=== PATIENT | male | born 1965 | race Caucasian/White ===

== ENCOUNTER → 2023-09-24 15:23 | Outpatient (REF) | payer OTHER, SELFPAY | LOC: DHVS 15:23 | PROVIDERS: ATTENDING PHYSICIAN Surgery Vascular Surgery; FAMILY PHYSICIAN Family Medicine | DX: I86.8 Varicose veins of other specified sites (principal) | CPT/HCPCS: 93970 ==

== ENCOUNTER 2024-08-31 14:53 | Inpatient (IN) | payer OTHER, SELFPAY ==
[2024-08-31] VITALS (55 sets, daily range): BP systolic 128–174; BP diastolic 73–107; BMI 27.7
[2024-08-31 13:03] LABS: Glucose - Point of Care 109 mg/dl (70-99)
--- NOTE | 2024-08-31 13:09 | ED.CVA ---
History of Present Illness
General
Chief Complaint: CVA/TIA Symptoms
Source: patient and ambulance crew
Exam Limitations: none
Time Seen by Provider: 08/31/24 13:09
Nursing documentation reviewed up to this point in time: agreed with
Onset of Stroke Symptoms
Onset of symptoms known: Yes
Date of onset of symptoms: 08/31/24
History of Present Illness
History of Present Illness:
Patient is a 59-year-old male who presents to the ER for evaluation. As per MS about 1 hour prior to arrival patient was sitting at his computer and had right arm weakness and noticing slurred speech that resolved in a couple of minutes and then he
had recurrence of episodes. When EMS apparently reported to the scene patient had right facial drooping however symptoms resolved prior to arrival. Upon my presentation patient was awake and alert speech was clear however as he was speaking to me
patient's speech started to slur again Very mild right-sided facial droop mild right arm weakness. He had no headache.
Patient reports is on a statin but no other medical history. He does drink several days a week, former smoker
Phy Exam
General Physical Exam
General Presentation: no apparent distress
General age: appears stated age
General Skin: warm and dry
General Habitus: normal
General Mental: alert
General Hydration: appears well hydrated
Cardiovascular Exam
Cardiovascular Exam: regular rate/rhythm, no murmur and normal peripheral pulses
Pulmonary Exam
Pulmonary Exam: lungs clear and no respiratory distress
Neurological Exam
Neurological Exam: alert, oriented x3 and no sensory deficits
NIH Stroke Score
Level of Consciousness: 0 - Alert
LOC questions: 0-Answers both correctly
LOC Commands: 0-Performs both correctly
Best Gaze: 0-Normal
Visual Mckeon: 0=Normal, no visual loss
Facial palsy: 2=Partial paralysis
Motor - Right Arm: 0=No drift 10 seconds
Motor - Left Arm: 0=No drift 10 seconds
Motor - Right Le-No drift 5 seconds
Motor - Left Le-No drift 5 seconds
Limb Ataxia: 0-Absent
Sensation: 0-Normal
Best Language: 0-No aphasia
Dysarthria: 1-Mild slurring
Extinction and Inattention: 0-No abnormality
Total Score:: 3
Musculoskeletal Exam
Musculoskeletal Exam: full ROM
Skin Exam
Skin Exam: normal color and warm/dry
Psychiatric Exam
Psychiatric Exam: normal mood/affect
Course
Orders/Labs/Results
Orders:
Orders
08/31/24 13:13
Electrocardiogram (*1) Urgent
Reason for Study: Other
Other Reason for Exam: Possible Stroke
Bedside Glucose- Treatment ONCE
Cardiac Monitoring- Treatment ONCE
EKG- Treatment ONCE
IV Insert/Care/Rem.- Treatment PRN
Vital Signs As Directed
Frequency: Other
Weight As Directed
Frequency: Once
Comment: ZERO STRETCHER SCALE FOR ACCURATE WEIGHT
O2 Therapy [RESP] Urgent
Titrate/Wean O2 to maintain O2 sat greater than (%): 93
Special Instructions: MAINTAIN CONTINUOUS O2 SATS > OR = 93%
08/31/24 13:15
CT HEAD STROKE ALERT W/o Cont Stat
Comment:
Reason For Exam: CVA sx
Alcohol Urgent
Complete Blood Count/With Diff Urgent
Comprehensive Metabolic Panel Urgent
PTT Urgent
Prothrombin Time Urgent
Troponin I Urgent
08/31/24 13:17
CT BRAIN PERF STROKE ALERT Urgent
Reason For Exam: slurred speech
08/31/24 13:18
CT HEAD/NECK ANG STROKE ALERT Urgent
Reason For Exam: slurred speech
08/31/24 13:28
Add On- LAB Urgent
Tests Added?: alcohol
08/31/24 13:54
Tenecteplase [Tnkase] 22 mg Syringe [Syringe Non-Pump] 0 ml IV NOW
Provider explained risk/benefits to patient &/or caregiver?: Yes
Blood pressure: 154/96
08/31/24 14:35
Admit/Transfer Patient As Directed
Co-Sign Provider:
Level of Care: Inpatient admission
Assign to:: ICU
Physician / Group: Marah Brown
Diagnosis: Acute Ischemic Stroke
Reason for Hospitalization: Acute Ischemic Stroke
Expected length of stay greater than two midnights?: Yes
ELOS- Estimated Length of Stay in days: 3
I certify the patient meets the requirements for IP care: Yes
PRN Pain Medication Management As Directed
May give lesser potent ordered pain med per pt: Yes
preference::
Protocol:: Medication orders for pain may be administered in a
manner that supports deferring to patient preference
when the pt is:
- Requesting an ordered lesser potent pain medication.
Least to most potent pain medications are defined
as: acetaminophen < NSAID < tramadol < opioids
(morphine, oxycodone, hydromorphone).
- Requesting a lesser dose of the same medication IF
ORDERED.
- Requesting a less intrusive route of administration
if both routes are prescribed by the provider (PO <
IV).
08/31/24 14:36
Code Status As Directed
Resuscitation Status: Full Code
08/31/24 14:41
Echo 2D MMode Color/Doppler Routine
Reason for Study: CVA/TIA
Comment: received TNK @ 1400
Abnormal Lab Results
08/31/24 08/31/24
13:01 13:15
WBC 4.4 L 10^3/uL
(4.8-10.8)
Plt Count 112 L 10^3/uL
(130-400)
MPV 11.7 H fL
(7.4-10.4)
Immature Gran % 0.9 H %
(0-0.5)
Monocytes % 9.5 H %
(1.7-9.3)
Chloride 111 H mmol/L
(98-107)
Carbon Dioxide 20 L mmol/L
(22-30)
Glucose 108 H mg/dl
(70-99)
ALT 60 H U/L
(0-50)
POC Glucose 109 H mg/dl
(70-99)
08/31/24 13:15
08/31/24 13:15
Vital Signs
Initial and Last Documented VS:
Initial Vital Signs
Pulse Resp
97 15
08/31/24 12:59 08/31/24 12:59
Last Documented Vital Signs
Temp Pulse Resp BP Pulse Ox
98.7 F 82 16 162/91 96
08/31/24 13:00 08/31/24 14:45 08/31/24 14:45 08/31/24 14:45 08/31/24 13:21
[employer]ist consulted with Physician
[employer]ist consulted with physician?: Yes
Name of Physician Consulted: Concepción
MDM/Problems Addressed
Differential Diagnosis Includes:
Not limited to TIA, CVA
MDM/Problems Addressed:
As documented patient is a 59-year-old male who presented with 2 episodes of slurred speech facial droop right arm weakness that occurred prior to arrival were resolved upon arrival to the ER. However during my exam patient started with garbled
speech again stroke alert was called. I spoke with . CT head CT perfusion CT head and neck angio ordered.
1350: Patient came back from imaging with clear speech patient was eval by neurology at bedside however while neurology was still in the room evaluating patient he started back with slurred speech he continues with slurred speech at this time. This
is patient's fourth episode of slurred speech with facial droop. as per neuro TNK to be ordered .
Patient with clear speech after TNK admitted to hospital service vital signs stable. Patient is a hospital service .
*Radiology
Radiology exam reviewed: radiology read reviewed
*Pulse Oximetry
SaO2: 96
Oxygen Mode of Delivery: Room air
Patient hypoxic: no
*EKG
Interpretation: normal
Heart Rate: 92
Rate: normal
Rhythm: sinus
Ischemia: no ischemia
*Critical Care Note
Total Time (30-74mins, 75-104mins- exclusive of procedures): Not Applicable
comment:
Critical care statement: A total of 40 minutes of critical care time was provided for this patient. This includes management of unstable vital signs, evaluation of the patient at bedside, reviewing the patient's pertinent medical records, discussion
with consultants, review of old EKGs and review of pertinent medical records. This time with separate from time utilized to perform the aforementioned documented procedures
ED Attending Note
-
Portions of this chart may have been created with voice recognition software.� Occasional wrong word or��sound alike� substitutions may have occurred due to the inherent limitations of voice recognition software.
Discharge Plan
Departure
Patient Disposition: Admit
Date of Disposition: 08/31/24
Time of Disposition: 14:07
Admit to: ICU
Admit to doctor: hospitalist
Presentation/result/management discussed w/ accepting MD/DO: Hospitalist
Patient with high blood pressure during this ER visit?: Yes
Condition: Fair
Covid-19: Not Applicable
Discharge Problem:
Acute CVA (cerebrovascular accident)
Prescriptions:
No Action
atorvastatin 20 mg tablet
20 mg PO Daily
fenofibrate 160 mg tablet
160 mg PO Daily
cyanocobalamin (vitamin B-12) 1,000 mcg Tablet
1,000 mcg PO DAILY
cholecalciferol (vitamin D3) [Vitamin D3] 25 mcg (1,000 unit) Tablet
25 mcg PO DAILY
Nitric Oxide Tablet
1 tab PO DAILY
Discharge Date and Time
Print Language: NIUEAN
[2024-08-31 13:29] LABS: Hematocrit 44.2 % (39.0-52.0); Hemoglobin 15.4 g/dL (13.0-18.0); Mean Corp Hgb Conc. 34.8 g/dL (33.0-37.0); Mean Corpuscular Volume 86.3 fL (80.0-94.0); Nucleated Red Blood Cells % 0 % (-); Platelet Count 112 10^3/uL (130-400); Red Cell Dist. Width 12.7 % (11.5-14.5)
[2024-08-31 13:35] LABS: ALT (SGPT) 60 U/L (0-50); AST (SGOT) 38 U/L (17-59); Albumin 4.3 g/dl (3.5-5.0); Alkaline Phosphatase 68 U/L (38-126); Blood Urea Nitrogen 10 mg/dl (9-20); Calcium 9.7 mg/dl (8.4-10.2); Carbon Dioxide 20 mmol/L (22-30); Chloride 111 mmol/L (98-107); Estimated Creatinine Clearance 100 ml/min; Glucose 108 mg/dl (70-99); Potassium 3.8 mmol/L (3.5-5.1); Sodium 140 mmol/L (135-145); Total Protein 7.5 g/dl (6.3-8.2); eGFR > 60.00
[2024-08-31 13:36] LABS: INR 0.94; PT 13.1 Sec (11.4-14.6)
[2024-08-31 13:37] LABS: APTT 25.9 Sec (23.4-35.0)
[2024-08-31 13:47] LABS: Troponin I < 0.012 ng/ml
[2024-08-31] MEDS: TNKASE 4.4 MG IV (14:00)
--- NOTE | 2024-08-31 14:08 | HPS.HSE ---
Addendum entered and electronically signed by Marah Brown MD 08/31/24 16:40:
Alcohol Use
--patient reports drinking 2 light beers/day
-will order MSAS scoring, start withdrawal treatment protocol if e/o withdrawal
Original Note:
Family Physician
-
Family Physician: Darius Christy MD
Chief Complaint
-
slurred speech, facial droop and right arm weakness
History of Present Illness
Mr. Hermann Cohen is a 59 yo man with hx HLD on statin, former smoker, presents to the ER with recurrent transient episodes of right arm weakness and slurred speech.
Symptoms started today around noon. He had trouble speaking and right arm weakness. Resolved after a few minutes then recurred. When EMS arrived they noticed right facial droop that resolved upon arrival to the ER. Patient had 2 following
episodes in the ER, discussed with Neurology and TNK given. At beginning of my eval patient had slurred speech that resolved midway through my evaluation. He has right sided weakness associatd with events.
No recent fevers/chills. No chest pain or shortness of breath. No nausea/vomiting. No abdominal pain. No LE swelling.
Medical History
Past Medical History
Past Medical History: Reports Hypercholesterolemia
Past Surgical History: Reports Other
Social History
Tobacco: Other (occasional)
Alcohol: Occasional
Family History
Family History: Not pertinent
Allergies / Home Medications
Allergies reflects when Allergies were last updated in [employer].
Home Medications with original date entered in [employer]
Allergy/Medication List:
Allergies
Allergy/AdvReac Type Severity Reaction Status Date / Time
No Known Allergies Allergy Unverified 11/11/20 09:55
Review of Systems
-
History Source: Patient
A 12 point ROS was completed and negative except as noted: Yes
Physical Exam
Vital Signs
Vital Signs
Temp Pulse Resp BP Pulse Ox
98.7 F 91 16 154/96 96
08/31/24 13:00 08/31/24 13:45 08/31/24 13:45 08/31/24 13:00 08/31/24 13:21
Physical Exam
General: No Apparent Distress
HEENT: PERRLA
Respiratory: Clear; No Wheezes
Cardiac: S1/S2 and Regular Rhythm
GI: Soft and Non Tender
Musculoskeletal: No Edema
Skin: Warm and Dry; No Rash
Neuro: Other (ROSY, EOMI, initially had slurred speech that resolved after several minutes, 5/5 upper and lower extremity strength, no pronator drift)
Psych: Calm
Laboratory Results
-
08/31/24 13:15
08/31/24 13:15
Laboratory Results
PT 13.1 Sec (11.4-14.6) 08/31/24 13:15
INR 0.94 08/31/24 13:15
APTT 25.9 Sec (23.4-35.0) 08/31/24 13:15
Total Bilirubin 0.8 mg/dl (0.2-1.3) 08/31/24 13:15
AST 38 U/L (17-59) 08/31/24 13:15
ALT 60 U/L (0-50) H 08/31/24 13:15
Alkaline Phosphatase 68 U/L (38-126) 08/31/24 13:15
Troponin I < 0.012 ng/ml 08/31/24 13:15
Data Reviewed
-
Diagnostic Radiology: Report Reviewed by me
Lab Data: Labs Reviewed by me
Impression/Plan
-
Mr. Hermann Cohen is a 59 yo man with hx HLD on statin, former smoker, presents to the ER with recurrent transient episodes of right arm weakness and slurred speech. Patient had 2 episodes at home, asymptomatic on arrival followed by 2 additional
episodes. At this point TNK ordered.
Triage VS: T 98.7, P 97, RR 15, BP 154/96, SpO2 96%
LABS: WBC 4.4, Hg 15.4, PLT 112, Na 140, K+ 3.8, Cl 111, CO2 20, Cr 0.8, Glucose 108, T. Bili 0.8, AST 38, ALT 60, Trop < 0.[address]
IMPRESSION:
There are mild changes of cortical atrophy
CT BRAIN PERFUSION
CT HEAD/NECK
IMPRESSION:
Bilateral internal carotid atherosclerotic plaque without hemodynamically significant stenosis.
Mildly dominant left vertebral artery, diminutive distal right vertebral artery. No findings to suggest vertebral artery or internal carotid artery dissection bilaterally.
No findings to suggest significant proximal intracranial arterial stenosis bilaterally..
MAR TNK @ 1400
Acute Ischemic Stroke s/p TNK
-admit to ICU
-q1 hour neuro checks
-MRI Brain tomorrow, 24 hours post TNK
-TTE
-monitor on telemetry, will likely need discharge with longer term cardiac monitoring
-PT/OT/ST
-Burlapper consult
-Neurology consult
-start anti-pLT post 24 hour imaging
-F/U lipid panel, A1c
-increase atorvastatin to 40mg qhs
DVT PPx SCD for 24 hours post TNK
FULL CODE
Total Critical Care Time 51 minutes. I was immediately available to the patient and staff. I personally examined, reviewed labs, diagnostic images/reports, interpretations, treatment plans, discussed patient care with other providers and family
or caregivers (if patient is unable to make decisions), entered orders as appropriate and documented the medical record.
--- NOTE | 2024-08-31 14:08 | CON.INTV ---
Consultation
Consultation Request
Date/Time Consultation Requested: 08/31/2024-2:30 PM
Date/Time Consultation Performed: 08/31/2024-3 PM
Requesting Provider: hospitalist
Performing Provider: Dr. Orourke
Reason for Consultation: CVA/critical care management
Medical History
-
Chief Complaint: CVA
History of Present Illness:
59-year-old former smoking male who developed sudden onset right arm weakness and slurring speech felt to have CVA and received TNK-ux ui designer consulted for post TNKase/CVA/critical care management 08/31/2024.
Past Medical History
Past Medical History: None ( Hyperlipidemia. Low testosterone. Corneal transplant. . Popliteal vein aneurysm.Former smoker.)
Social History
Tobacco: Former Smoker
Alcohol: Occasional
Living: With Family
Occupational Exposures: No known asbestos exposure
Environmental Exposures: no known tuberculosis exposure
Family History
Family History: Reviewed & Not Pertinent ( Father-cancer. Mother-diabetes, atrial fibrillation and fibromyalgia)
Allergies / Home Medications
Allergies
Allergy/AdvReac Type Severity Reaction Status Date / Time
No Known Allergies Allergy Unverified 11/11/20 09:55
Review of Systems
-
Unable to Obtain full review of systems at this time due to: Other ( Per HPI)
Vitals / Labs / Diagnostic Testing
Vital Signs
Temp Pulse Resp BP Pulse Ox
98.7 F 91 16 154/96 96
08/31/24 13:00 08/31/24 13:45 08/31/24 13:45 08/31/24 13:00 08/31/24 13:21
Lab Data
08/31/24 13:15
08/31/24 13:15
Laboratory Results
08/31/24
13:15
PT 13.1
INR 0.94
APTT 25.9
Diagnostic Testing:
Physical Exam
-
Exam:
well-nourished and well-developed in no apparent distress
HEENT-atraumatic, normocephalic
Neck-supple, no JVD, no bruit
Heart-regular rate and rhythm-no murmurs, rubs or gallops
Chest-clear to auscultation, no wheezes, crackles
Back-no tenderness
Abdomen-soft, nontender, nondistended, no hepatosplenomegaly
Extremities-no cyanosis, clubbing, edema and good peripheral pulses
Integument-intact, no rashes, lesions or ecchymosis
Neurology-alert and oriented, nonfocal motor and sensory exam
Assessment
-
59-year-old former smoking male who developed sudden onset right arm weakness and slurring speech felt to have CVA and received TNK-ux ui designer consulted for post TNKase/CVA/critical care management 08/31/2024.
Evolving CVA status post TNK
Mild leukopenia
Mild hyperglycemia
Mild thrombocytopenia
Mild transaminitis
Conditions present prior to admission:
Hyperlipidemia.
Low testosterone.
Corneal transplant.
Popliteal vein aneurysm.
Former smoker-a couple cigarettes here there, less than 11-[id number]-puyk smoking history
Daily alcohol consumption-2- 3 beers
Plan
Admit patient to medical intensive care unit
Supplemental oxygen to maintain saturation greater than 92%
Aspiration precautions
Neurology evaluation
Monitor blood pressure closely-goal SBP < 180, DBP < 105
Neuro checks per protocol
Check CT head
MRI head/MRA head and neck in next 24 hours
Status post tenecteplase infusion
Hold antiplatelet therapy �24 hours
Check lipid panel-goal LDL less than 70
Check echocardiogram
Check A1c
Carotid circulation evaluation
Atorvostatin 80 mg daily if tolerated
Monitor blood sugar-insulin as needed-goal blood sugar 140-180
Follow MSAS
Alcohol withdrawal treatment protocol if signs of withdrawal
Smoking cessation counseling
Patient does not qualify for yearly low-dose lung cancer screening CT based on total pack years smoked
DVT prophylaxis-sequential for 24 hours and then Lovenox
Speech therapy/occupational therapy/physical therapy evaluation
Stroke education packet
No driving-patient needs outpatient visual field testing/clearance by ophthalmology for driving clearance
Critical care statement: A total of 55 minutes of critical care time was provided for this patient today. This includes management of unstable vital signs, evaluation of the patient at bedside, reviewing the patient's pertinent medical records
including radiographs, microbiology, laboratory evaluations, and discussion with primary team, consultants, pharmacy, nutrition, physical therapy, case management, charge nurse, critical care nursing, and respiratory therapy.
Diagnostic data:
CT head 08/31/2024-mild changes of cortical atrophy
CT head and neck angiogram 08/31/2024- bilateral internal carotid atherosclerotic plaques without hemodynamically significant stenosis with cross-sectional area stenosis less than 50% bilaterally, no findings to suggest significant proximal
Data Reviewed
-
EKG: Report reviewed by me
Radiology: Image personally visualized and interpreted and Report reviewed by me
CT Scan: Report reviewed by me
Labs: Labs reviewed by me
Old Records: Reviewed
Critical Care Time (in minutes): 55
--- NOTE | 2024-08-31 15:15 | PTCARENOTE ---
Pt rec'd into ICU 3364 from ED, handoff NIHSS completed in tandem with ED RNs and solar panel installation supervisor, pt scored 0. All previous deficits have resolved at this time. Pt oriented to room and plan of care, admission and assessment completed. Pt is AOx3, calm
and cooperative. Arrived to unit with sunburn noted to face and trunk, no other complaints at this time. Voided 350 mls clear yellow urine via urinal. Orders rec'd and carried out. See flow sheet for details -neuro checks and NIHSS checks completed
as per orders. Call moraes in hand, dinner ordered, safe environment maintained. Pt was screened for MRI by phone.
[2024-08-31 16:42] LABS: Magnesium 1.8 mg/dl (1.6-2.3)
--- NOTE | 2024-08-31 17:31 | CON.NEURO ---
Neuro Assessment/Plan
Assessment
head CT imgs and rept rev'd, no bleed
CTA head neck imgs and rept rev'd, mild atherosclerosis of bilateral carotids, no significant stenosis, no LVO
stroke/crescendo TIA, s/p TNK
Plan
24 hrs of ICU monitoring then MRI
Consultation
Order
Date of Consultation: 08/31/24
Requesting Provider:
Reason for Consult:
Subjective/Objective
Subjective Data
Date of Service: August 31, 2024
Patient is a 59-year-old male who presents to the ER for evaluation. As per MS about 1 hour prior to arrival patient was sitting at his computer and had right arm weakness and noticing slurred speech that resolved in a couple of minutes and then he
had recurrence of episodes. When EMS apparently reported to the scene patient had right facial drooping however symptoms resolved prior to arrival. Upon my presentation patient was awake and alert speech was clear however as he was speaking to me
patient's speech started to slur again Very mild right-sided facial droop mild right arm weakness. He had no headache.
Patient reports is on a statin but no other medical history. He does drink several days a week, former smoker
I examined and spoke with patient and family immediately after CT scan at which time his 3rd TIA resolved and we discussed the role of TNK, and then immediately afterwards his symptoms recurred and we decided to give TNK. it resolved and then he had
a 5th episode
Objective Data
Vital Signs
Temp Pulse Resp BP Pulse Ox
36.7 C 79 21 158/86 97
08/31/24 15:38 08/31/24 17:02 08/31/24 17:02 08/31/24 17:02 08/31/24 17:12
Lab Results
08/31/24 13:15
08/31/24 13:15
PT 13.1 Sec (11.4-14.6) 08/31/24 13:15
INR 0.94 08/31/24 13:15
APTT 25.9 Sec (23.4-35.0) 08/31/24 13:15
Sodium 140 mmol/L (135-145) 08/31/24 13:15
Potassium 3.8 mmol/L (3.5-5.1) 08/31/24 13:15
BUN 10 mg/dl (9-20) 08/31/24 13:15
Glucose 108 mg/dl (70-99) H 08/31/24 13:15
Calcium 9.7 mg/dl (8.4-10.2) 08/31/24 13:15
Phosphorus 3.8 mg/dl (2.5-4.5) 08/31/24 13:15
Patient Allergies
No Known Allergies Allergy (Unverified 11/11/20 09:55)
CVA Assessment
Onset of Stroke Symptoms
Onset of symptoms known: Yes
Date of onset of symptoms: 08/31/24
Time of onset of symptoms: 12:00
NIH Stroke Score
Level of Consciousness: 0 - Alert
LOC Questions: 0-Answers both correctly
LOC Commands: 0-Performs both correctly
Best Horizontal Gaze: 0-Normal
Visual Mckeon: 0=Normal, no visual loss
Facial Palsy: 1=Minor paralysis
Motor - Right Arm: 0=No drift 10 seconds
Motor - Left Arm: 0=No drift 10 seconds
Motor - Right Le-No drift 5 seconds
Motor - Left Le-No drift 5 seconds
Limb Ataxia: 0-Absent
Sensation: 0-Normal
Best Language: 0-No aphasia
Dysarthria: 2-Severe slurring
Extinction and Inattention: 0-No abnormality
NIH Total Score:: 3
Physical Exam
-
dysarthric, speech difficult to comprehend
right facial droop
loss of dominance, right pronator drift
Medications
-
Active Medications
Generic Name Dose Route Start Last Admin
Trade Name Freq PRN Reason Stop Dose Admin
Acetaminophen 650 mg 08/31/24 15:08
Acetaminophen 325 Mg Tablet PO 09/28/24 15:07
Q4HPRN PRN
ROUSE, mild pain, or temp >100.4F
Atorvastatin Calcium 40 mg 08/31/24 18:00
Atorvastatin (Lipitor) 20 Mg Tablet PO 09/28/24 17:59
QPM SIDDHARTHA
Fenofibrate 145 mg 09/01/24 08:00
Fenofibrate 145 Mg Tablet PO 09/29/24 07:59
DAILY SIDDHARTHA
Labetalol HCl 10 mg 08/31/24 15:08
Labetalol Hcl 5 Mg/1 Ml (20 Mg/4 Ml) Injection IV 09/28/24 15:07
Q6HPRN PRN
BP > 180/105 mmHg
Home Medications
�Medication �Instructions �Recorded
Nitric Oxide Tablet 1 tab PO DAILY 08/31/24
atorvastatin 20 mg tablet 20 mg PO Daily High Cholesterol 08/31/24
cholecalciferol (vitamin D3) 25 25 mcg PO DAILY 08/31/24
mcg (1,000 unit) tablet (Vitamin
D3)
cyanocobalamin (vitamin B-12) 1,000 mcg PO DAILY 08/31/24
1,000 mcg tablet
fenofibrate 160 mg tablet 160 mg PO Daily High Cholesterol 08/31/24
[2024-08-31] MEDS: LIPITOR 40 MG PO (17:57)
--- NOTE | 2024-08-31 18:46 | PTCARENOTE ---
Pt remains AOx3, pleasant and cooperative, Neuro checks WNL. Pt ate 100% dinner, now placed on bedpan for BM. Report given to night RN.
--- NOTE | 2024-08-31 20:46 | PTCARENOTE ---
Received pt from previous RN. Pt is AAOx3. NIH done at change of shift hand off (see worklist), neuro checks per protocol. MSAS per protocol. NSR on the monitor. Pt on RA O2 sat 95%, lungs clear. Pt uses the urinal in bed. Pt with no c/o pain. SCDs
in place. Mouth care provided. Safe environment maintained. Call moraes in reach.
[2024-09-01] VITALS (27 sets, daily range): BP systolic 128–158; BP diastolic 80–97; PULSE 80; BMI 27.2
--- NOTE | 2024-09-01 00:23 | PTCARENOTE ---
Systems reviewed, no new changes in assessment. Neuro check WNL (see worklist). Call moraes in reach. Safe environment maintained.
--- NOTE | 2024-09-01 04:24 | PTCARENOTE ---
Systems reviewed, no new changes in assessment. Neuro checks WNL. Call moraes in reach. Safe environment maintained.
--- NOTE | 2024-09-01 07:47 | W.PN.INTV ---
Today's Communication / Plan
Recommendations
wean oxygen
Neurochecks continue
Brain MRI
If patient remains neurologically stable 24 hours post TNK then could be transferred out of ICU-manager of tires sales will sign off-call pulmonary if respiratory issues arise
Assessment
-
59-year-old former smoking male who developed sudden onset right arm weakness and slurring speech felt to have CVA and received TNK-manager of tires sales consulted for post TNKase/CVA/critical care management 08/31/2024.
Evolving CVA status post TNK
Mild leukopenia
Mild hyperglycemia
Mild thrombocytopenia
Mild transaminitis
Conditions present prior to admission:
Hyperlipidemia.
Low testosterone.
Corneal transplant.
Popliteal vein aneurysm.
Former smoker-a couple cigarettes here there, less than 48-lgdl-pfuj smoking history
Daily alcohol consumption-2- 3 beers
Plan
Neurologic symptoms have improved
Wean supplemental oxygen
Aspiration precautions
Incentive spirometry
Neurology evaluationOngoing-correspondence reviewed
Monitor blood pressure closely-goal SBP < 180, DBP < 105
Neuro checks per protocol
Status post tenecteplase infusion-2 PM 08/31/2024
Held antiplatelet therapy �24 hours
Check lipid panel-goal LDL less than 70
Echocardiogram 08/31/2024-EF 60%, no significant valvular disease, cannot rule out PFO, no obvious cardioembolic source of stroke
A1c-5.6%
Atorvostatin 80 mg daily if tolerated
Monitor blood sugar-insulin as needed-goal blood sugar 140-180
Follow MSAS
Alcohol withdrawal treatment protocol if signs of withdrawal
Smoking cessation counseling
Patient does not qualify for yearly low-dose lung cancer screening CT based on total pack years smoked
DVT prophylaxis-sequential for first 24 hours and then Lovenox
Speech therapy/occupational therapy/physical therapy evaluation
Stroke education packet
If continues to remain neurologically stable patient could be transferred out of ICU-manager of tires sales will sign off-call pulmonary if respiratory issues arise
Critical care statement: A total of 40 minutes of critical care time was provided for this patient today. This includes management of unstable vital signs, evaluation of the patient at bedside, reviewing the patient's pertinent medical records
including radiographs, microbiology, laboratory evaluations, and discussion with primary team, consultants, pharmacy, nutrition, physical therapy, case management, charge nurse, critical care nursing, and respiratory therapy.
Diagnostic data:
CT head 08/31/2024-mild changes of cortical atrophy
CT head and neck angiogram 08/31/2024- bilateral internal carotid atherosclerotic plaques without hemodynamically significant stenosis with cross-sectional area stenosis less than 50% bilaterally, no findings to suggest significant proximal
Subjective Dataa
Subjective Data
Date of Service:
Date of Service: September 01, 2024
Chief Complaint: Organ Fixer Follow Up and Pulmonary Follow Up
Subjective:
feels well, neurologic symptoms have resolved, no complaints of dysarthria, weakness, numbness, and denies any shortness of breath, chest pain or abdominal pain
Review of Systems
General: Other ( Per HPI)
Objective Data
Data Reviewed
Vital Signs / I&O / Oxygen:
Vital Signs
Temp Pulse Resp BP Pulse Ox
97.9 F 64 17 144/88 95
09/01/24 07:42 09/01/24 07:02 09/01/24 07:02 09/01/24 07:02 09/01/24 07:40
Intake and Output
08/31/24 09/01/24 09/02/24
06:59 06:59 06:59
Intake Total 200 / 200
Output Total 650 / 650
Balance -450 / -450
SaO2 95
Physical Exam
General: Respiratory Distress (n) and Comfortable
HEENT: Normocephalic, Anicteric and Moist Mucous Membranes
Cardiovascular: Regular Rhythm
Respiratory: Wheeze (n), Crackles (n), Rhonchi (n), Non-Labored Respirations, Accessory Resp Muscle Use (n) and Stridor (n)
GI: Soft, Non Distended and Non Tender
Neurology: Awake, Alert and No Motor Deficits
Skin: Warm, Good Color, Cyanosis (n) and Jaundice (n)
Labs/Micro/Reports
Laboratory Results
08/31/24
13:15
PT 13.1
INR 0.94
APTT 25.9
[2024-09-01] MEDS: TRICOR 145 MG PO (07:58)
--- NOTE | 2024-09-01 08:16 | PTCARENOTE ---
Pt rec'd from night RN in report 07:15. Handoff NIHSS 0. Pt is aox3, pleasant and cooperative. C/O gas pains, placed on bedpan; +flatus, no BM. VSS. Awaiting MRI, potential downgrade out of ICU later today. MSAS scores remain 0. Breakfast ordered
and delivered, labs obtained by supervisor photocomposition, call moraes in reach. Plan discussed with submarine element coordinator. Safe environment maintained.
[2024-09-01 08:36] LABS: Hematocrit 46.1 % (39.0-52.0); Hemoglobin 15.7 g/dL (13.0-18.0); Mean Corp Hgb Conc. 34.1 g/dL (33.0-37.0); Mean Corpuscular Volume 87.1 fL (80.0-94.0); Platelet Count 114 10^3/uL (130-400); Red Cell Dist. Width 13.1 % (11.5-14.5)
[2024-09-01 08:39] LABS: INR 1.00; PT 13.5 Sec (11.4-14.6)
[2024-09-01 08:40] LABS: APTT 26.5 Sec (23.4-35.0)
--- NOTE | 2024-09-01 08:46 | PTCARENOTE ---
MRI dept called to set up time for 11 am. Pt updated.
[2024-09-01 09:08] LABS: Glycohemoglobin (HgbA1c) 5.6 % (4.0-5.6)
[2024-09-01 09:21] LABS: Blood Urea Nitrogen 12 mg/dl (9-20); Calcium 9.6 mg/dl (8.4-10.2); Carbon Dioxide 25 mmol/L (22-30); Chloride 108 mmol/L (98-107); Estimated Creatinine Clearance 100 ml/min; Glucose 99 mg/dl (70-99); HDL Cholesterol 41 mg/dl; LDL Cholesterol, Calculated 158 mg/dl; Magnesium 2.1 mg/dl (1.6-2.3); Potassium 4.8 mmol/L (3.5-5.1); Sodium 141 mmol/L (135-145); Very Low Density Lipoprotein 42 mg/dl (0-30); eGFR > 60.00
--- NOTE | 2024-09-01 11:15 | PTOTSP ---
Speech therapy
Presentation: Patient's speech and language appeared to be WNL during conversation. Noted very, very slight left facial weakness/ droop which patient denied complaints or weakness. Patient denied any communicative deficits.
Swallowing function: Patient was observed with several bites of regular consistency solids and sips of thin liquid from his tray in which patient appeared to tolerate as he did not exhibit any overt clinical s/sx of aspiration or difficulty with
mastication. Patient denied any dysphagia complaints.
Per RN, patient tolerated medications whole with thin liquids.
Recommendations:
1) regular consistency solids and thin liquids
2) aspiration precautions
3) medications whole with thin liquids
Plan: WIRELESS INTERNET INSTALLER will continue to follow to ensure tolerance; pending hospitalization.
--- NOTE | 2024-09-01 11:58 | W.PN.HOSP.TC ---
Today's Communication/Plan
-
Await MRI results
Antiplatelet agents per neurology
If MRI without acute abnormality can consider transfer out of ICU
Monitor telemetry
Monitor blood pressure
Continue statin
Assessment / Plan
Assessment / Plan
General: No Apparent Distress
HEENT: PERRLA
Respiratory: Clear; No Wheezes
Cardiac: S1/S2 and Regular Rhythm
GI: Soft and Non Tender
Musculoskeletal: No Edema
Skin: Warm and Dry; No Rash
Neuro: Other (ROSY, EOMI, initially had slurred speech that resolved after several minutes, 5/5 upper and lower extremity strength, no pronator drift)
Psych: Calm
Mr. Hermann Cohen is a 59 yo man with hx HLD on statin, former smoker, presents to the ER with recurrent transient episodes of right arm weakness and slurred speech. Patient had 2 episodes at home, asymptomatic on arrival followed by 2 additional
episodes. At this point TNK ordered.
Triage VS: T 98.7, P 97, RR 15, BP 154/96, SpO2 96%
LABS: WBC 4.4, Hg 15.4, PLT 112, Na 140, K+ 3.8, Cl 111, CO2 20, Cr 0.8, Glucose 108, T. Bili 0.8, AST 38, ALT 60, Trop < 0.[address]
IMPRESSION:
There are mild changes of cortical atrophy
CT BRAIN PERFUSION
CT HEAD/NECK
IMPRESSION:
Bilateral internal carotid atherosclerotic plaque without hemodynamically significant stenosis.
Mildly dominant left vertebral artery, diminutive distal right vertebral artery. No findings to suggest vertebral artery or internal carotid artery dissection bilaterally.
No findings to suggest significant proximal intracranial arterial stenosis bilaterally..
MAR TNK @ 1400
Acute Ischemic Stroke s/p TNK
-q1 hour neuro checks
-MRI Brain results pending
-TTE with EF of 60%. No significant valvular disease. Intra-atrial septum is not well-visualized. Cannot rule out PFO. No obvious cardioembolic source of stroke. Continue to monitor on telemetry.
-monitor on telemetry,
-PT/OT/ST
-start anti-pLT post 24 hour imaging per neurology
- Cholesterol elevated.
-increase atorvastatin to 40mg qhs
- Neurology recs
Alcohol Use
--patient reports drinking 2 light beers/day
-will order MSAS scoring, start withdrawal treatment protocol if e/o withdrawal
Hyperlipidemia
Statin dose increase
Vitamin B12 deficiency
Continue p.o. supplementation
DVT PPx SCD for 24 hours post TNK
FULL CODE
Anticipated Discharge: > 48 hours
Subjective/Interval History
-
Date of Service: September 01, 2024
No overnight events
Passing flatulence
Denies any pain or lightheadedness
Objective Data
-
Labs:
Laboratory Results
09/01/24
08:04
WBC 4.3 L
Hgb 15.7
Hct 46.1
Plt Count 114 L
PT 13.5
INR 1.00
APTT 26.5
Sodium 141
Potassium 4.8 D
Chloride 108 H
Carbon Dioxide 25
BUN 12
Creatinine 0.8
Glucose 99
Calcium 9.6
Vital Signs:
Vital Signs
Temp Pulse Resp BP Pulse Ox
98.2 F 70 12 128/86 95
09/01/24 11:06 09/01/24 11:02 09/01/24 11:02 09/01/24 11:02 09/01/24 07:40
I&O
08/31/24 09/01/24 09/02/24
06:59 06:59 06:59
Intake Total 200 / 200 480 / 480
Output Total 650 / 650 300 / 300
Balance -450 / -450 180 / 180
Data Reviewed
-
Total Time Spent with Patient (in minutes): 55
--- NOTE | 2024-09-01 13:05 | PTCARENOTE ---
Pt taken for MRI, returned to room without incident, MDs updated. Pt eating lunch -Neuro checks remain WNL, see flowsheet.
--- NOTE | 2024-09-01 13:35 | PTCARENOTE ---
Pt assigned new room 414-1. Attending updated, ok to transfer pt out. Activity as tolerated ordered. Pt updated. Report attempted- RN unavailable to receive at this time, will call back.
--- NOTE | 2024-09-01 14:14 | PTCARENOTE ---
Report given to Baltazar SHAFFER, pt updated. Pt assisted into bathroom to attempt BM. Steady on feet with standby assistance.
[2024-09-01] MEDS: COZAAR 25 MG PO (14:17)
[2024-09-01] MEDS: LIPITOR 40 MG PO (17:12)
--- NOTE | 2024-09-01 19:54 | W.PN.NEURO.1 ---
Today's Communication / Plan
-
21 days of DAPT, Lipitor 40
outpatient embolic workup
Neuro Assessment/Plan
Assessment
head CT imgs and rept rev'd, no bleed
CTA head neck imgs and rept rev'd, mild atherosclerosis of bilateral carotids, no significant stenosis, no LVO
brain MRI imgs rev'd with patient showing stroke
stroke/crescendo TIA, s/p TNK. suspicion for embolic source of a partly occlusive thrombus which partially dissolved and stroked a smaller territory
start 21 days of DAPT
agree increase Lipitor 40
we discussed and he is interested in outpatient cardiology for embolic workup
Subjective/Objective
Subjective Data
Date of Service: September 01, 2024
symptoms resolved
ended up having a total of 5 events, the last one occurred right after TNK
Objective Data
Vital Signs
Temp Pulse Resp BP Pulse Ox
36.9 C 66 16 149/82 96
09/01/24 19:28 09/01/24 19:28 09/01/24 19:28 09/01/24 19:28 09/01/24 19:28
Lab Results
09/01/24 08:04
09/01/24 08:04
PT 13.5 Sec (11.4-14.6) 09/01/24 08:04
INR 1.00 09/01/24 08:04
APTT 26.5 Sec (23.4-35.0) 09/01/24 08:04
Sodium 141 mmol/L (135-145) 09/01/24 08:04
Potassium 4.8 mmol/L (3.5-5.1) D 09/01/24 08:04
BUN 12 mg/dl (9-20) 09/01/24 08:04
Glucose 99 mg/dl (70-99) 09/01/24 08:04
Calcium 9.6 mg/dl (8.4-10.2) 09/01/24 08:04
Phosphorus 3.8 mg/dl (2.5-4.5) 08/31/24 13:15
LDL Cholesterol, Calc 158 mg/dl 09/01/24 08:04
Patient Allergies
No Known Allergies Allergy (Unverified 11/11/20 09:55)
[2024-09-01] MEDS: PLAVIX 75 MG PO (20:04)
[2024-09-01] MEDS: ASPIR LOW (ENTERIC COATED) 81 MG PO (20:04)
[2024-09-02 03:49] VITALS: BP 127/80
[2024-09-02 07:00] VITALS: BP 137/83
[2024-09-02 09:37] LABS: Glucose 135 mg/dl (70-99)
[2024-09-02 09:38] LABS: Blood Urea Nitrogen 14 mg/dl (9-20); Calcium 9.4 mg/dl (8.4-10.2); Carbon Dioxide 29 mmol/L (22-30); Chloride 107 mmol/L (98-107); Estimated Creatinine Clearance 89 ml/min; Potassium 4.5 mmol/L (3.5-5.1); Sodium 139 mmol/L (135-145); eGFR > 60.00
[2024-09-02] MEDS: PLAVIX 75 MG PO (09:38)
[2024-09-02] MEDS: COZAAR 25 MG PO (09:39)
[2024-09-02] MEDS: TRICOR 145 MG PO (09:39)
[2024-09-02] MEDS: ASPIR LOW (ENTERIC COATED) 81 MG PO (09:39)
--- NOTE | 2024-09-02 10:34 | W.PN.HOSP.TC ---
Today's Communication/Plan
-
dc home
Assessment / Plan
Assessment / Plan
General: No Apparent Distress
HEENT: PERRLA
Respiratory: Clear; No Wheezes
Cardiac: S1/S2 and Regular Rhythm
GI: Soft and Non Tender
Musculoskeletal: No Edema
Skin: Warm and Dry; No Rash
Neuro: Awake alert and oriented. Cranial nerves II to XII intact
Psych: Calm
Mr. Hermann Cohen is a 59 yo man with hx HLD on statin, former smoker, presents to the ER with recurrent transient episodes of right arm weakness and slurred speech. Patient had 2 episodes at home, asymptomatic on arrival followed by 2 additional
episodes. At this point TNK ordered.
Acute Ischemic Stroke s/p TNK
-q1 hour neuro checks
-MRI Brain results positive for severe
-TTE with EF of 60%. No significant valvular disease. Intra-atrial septum is not well-visualized. Cannot rule out PFO. No obvious cardioembolic source of stroke. Continue to monitor on telemetry.
-monitor on telemetry,
-PT/OT/ST
- Plan for dual antiplatelet agent for 21 days then continue single agent
- Cholesterol elevated.
-increase atorvastatin to 40mg qhs. Blood pressure elevated start losartan. Creatinine stable. Potassium stable.
- Neurology recs. Follow-up with cardiology outpatient for embolic workup
Alcohol Use
--patient reports drinking 2 light beers/day
-will order MSAS scoring, start withdrawal treatment protocol if e/o withdrawal
Hyperlipidemia
Statin dose increase
Vitamin B12 deficiency
Continue p.o. supplementation
Primary hypertension under current
Start losartan follow-up with primary doctor
DVT PPx ambulating
FULL CODE
PT OT Home
More than 30 minutes spent in discharge including
Final examination of the patient
Summarizing hospital stay
Instructions for continuing care to all relevant caregivers
Preparation of discharge records, prescriptions, and referral forms
Total time spent (in minutes): 55
Anticipated Discharge: Today
Subjective/Interval History
-
Date of Service: September 02, 2024
Patient states he is feeling significantly better.
Denies any diplopia, vision problems, numbing tingling or speech problems
Objective Data
-
Labs:
Laboratory Results
09/02/24
08:45
Sodium 139
Potassium 4.5
Chloride 107
Carbon Dioxide 29
BUN 14
Creatinine 0.9
Glucose 135 H
Calcium 9.4
Vital Signs:
Vital Signs
Temp Pulse Resp BP Pulse Ox
98.3 F 64 12 137/83 96
09/02/24 07:00 09/02/24 09:39 09/02/24 07:00 09/02/24 09:39 09/02/24 07:00
I&O
09/01/24 09/02/24 09/03/24
06:59 06:59 06:59
Intake Total 200 / 200 960 / 960
Output Total 650 / 650 300 / 300
Balance -450 / -450 660 / 660
--- NOTE | 2024-09-02 10:36 | W.DCSUMMARY ---
Discharge Summary
Discharge Data
Date of Admission: 08/31/24
Date of Discharge: 09/02/24
-
Pending Results: No
Hospital Course
59-year-old male past medical history of hyperlipidemia, former smoker who presented to the ER with recurrent transient episode of right arm weakness and slurred speech. Patient had multiple episode of slurred speech. Patient was eval by
neurology. Patient with CT of the head which is negative for acute stroke. Patient received TNK. Patient was monitored in the ICU post TNK. Patient with resolution of neurological symptoms. TTE with EF of 60%. No significant valvular disease.
Intra-atrial septum is not well-visualized. Cannot rule out PFO. No obvious cardioembolic source of stroke. Continue to monitor on telemetry. MR brain w/There are small foci of restricted diffusion within the posterior left basal ganglia and left
periventricular white matter consistent with acute infarctions. There is no evidence of hemorrhagic transformation. Patient was found to elevated cholesterol and Lipitor dose was increased. Patient with elevated blood pressure and started on
losartan. Patient was by physical and occupational be discharged home. Patient was recommended follow-up with cardiology as outpatient for embolic stroke workup.
Discharge Plan
-
Patient Disposition: Home (Routine Discharge)
Discharge Diagnosis/Procedures: Stroke
Hyperlipidemia
Hypertension
Condition: Fair
Diet: Low Cholesterol
Activity: As tolerated
Driving Restrictions: As prior to admission
Blood Work: Repeat BMP in 1 week via primary doctor.
Instructions: High cholesterol, High blood pressure in adults, Stroke - Discharge instructions
Referrals:
Ruben Thomas MD [Active, Cardiology] - in one to two weeks
Referral Note: cardiology for embolic workup.
Darius Christy MD [Family Provider, Family Practice] - in less than 1 week
Additional Discharge Medication Instructions: Take aspirin and Plavix together for additional 19 days then stop Plavix and continue aspirin
Prescriptions:
New
aspirin 81 mg Tablet,Delayed Release (Dr/Ec)
81 mg PO DAILY Qty: 30 0RF
clopidogrel 75 mg Tablet
75 mg PO DAILY 19 Days Qty: 19 0RF
losartan 25 mg Tablet
25 mg PO DAILY 30 Days Qty: 30 0RF
atorvastatin [Lipitor] 40 mg tablet
40 mg PO QPM Qty: 30 0RF
Continued
fenofibrate 160 mg tablet
160 mg PO Daily
cyanocobalamin (vitamin B-12) 1,000 mcg Tablet
1,000 mcg PO DAILY
cholecalciferol (vitamin D3) [Vitamin D3] 25 mcg (1,000 unit) Tablet
25 mcg PO DAILY
Nitric Oxide Tablet
1 tab PO DAILY
Discontinued
atorvastatin 20 mg tablet
20 mg PO Daily
Discharge Orders:
Discharge Patient (As Directed); Ordered 09/02/24
Ordered By: Arvind Baca
Discharge Date and Time
Discharge Date/Time: 09/02/24 13:41
Print Language: DIVEHI
[2024-09-02 11:00] VITALS: BP 133/81
--- NOTE | 2024-09-02 11:05 | CM ---
water resource manager reviewed patient's chart and met with patient and patient lives in a 1 story home with 2 steps to enter, patient is independent with adl's and ambulation, no dme, patient is currently ambulating 125 feet no device.
PCP: Darius Christy
Pharmacy: [facility].
== END 2024-09-02 13:41 | disposition home or self-care (01) | DRG 63 ==
LOC: 4 WEST ACU 14:53
PROVIDERS: ADMITTING PHYSICIAN Student in an Organized Health Care Education/Training Program; ATTENDING PHYSICIAN Hospitalist; CONSULT PHYSICIAN Psychiatry & Neurology Clinical Neurophysiology; EMERGENCY PHYSICIAN Emergency Medicine; FAMILY PHYSICIAN Family Medicine; OTHER PHYSICIAN Internal Medicine Critical Care Medicine
PROC: 3E03317 Introduction of Other Thrombolytic into Peripheral Vein, Percutaneous Approach (ICD-10-PCS; 2024-08-31)
DX: I63.9 Cerebral infarction, unspecified (principal); Z87.891 Personal history of nicotine dependence
CPT/HCPCS: 0042T; 70450; 70496; 70498; 70551; 71045; 80048; 80053; 80061; 82077; 82962; 83036; 83735; 84100; 84484; 85025; 85027; 85610; 85730; 92610; 93005; 93306; 97116; 97162; 97166; 99291; J3101; Q9967

== ENCOUNTER → 2024-10-04 14:50 | Outpatient (REF) | payer OTHER, SELFPAY | LOC: RAD 14:50 | PROVIDERS: ATTENDING PHYSICIAN Surgery Vascular Surgery; FAMILY PHYSICIAN Family Medicine | DX: I86.8 Varicose veins of other specified sites (principal) | CPT/HCPCS: 93971 ==